=== PATIENT | female | born 1975 | race Caucasian/White ===

== ENCOUNTER 2016-11-14 08:31 | Emergency (ER) | payer MEDICARE, OTHER ==
[2016-11-14 09:01] VITALS: BP 135/73
--- NOTE | 2016-11-14 09:19 | UC ---
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 Negative: Discharge, Foreign Body Sensation, Trauma to Ear, Swelling @, URI Symptoms - Allergies/Home Medications Allergies/Adverse Reactions: Allergies Allergy/AdvReac Type Severity Reaction Status Date / Time Ibuprofen Allergy Unknown Verified 11/14/16 08:51 Reaction Details Home Medications: Home Medications Acetaminophen TAB* [Tylenol TAB*] 325 mg PO ONCE PRN 11/14/16 [History Confirmed 11/14/16] PMH/Surg Hx/FS Hx/Imm Hx Previously Healthy: Yes - Surgical History Surgical History: Yes Surgery Procedure, Year, and Place: 07/17/09 - Family History Known Family History: Positive: Unknown Negative: Diabetes - Social History Alcohol Use: None Substance Use Type: None Smoking Status (MU): Never Smoked Tobacco Have You Smoked in the Last Year: No - Immunization History Hx Tetanus, Diphtheria Vaccination: Yes Vaccination Up to Date: Yes Review of Systems Constitutional: Negative Skin: Negative Eyes: Negative ENT: Ear Ache Respiratory: Negative Cardiovascular: Negative All Other Systems Reviewed And Are Negative: Yes Physical Exam Triage Information Reviewed: Yes Appearance: Well-Appearing, No Pain Distress, Well-Nourished Vital Signs: Initial Vital Signs Temp 99.3 F 11/14/16 08:43 Pulse 88 11/14/16 08:43 Resp 20 11/14/16 08:43 BP 135/73 11/14/16 08:43 Vital Signs Reviewed: Yes Eyes: Positive: Conjunctiva Clear ENT: Positive: Normal ENT inspection, Pharynx normal, Other: - + cerumen impaction left ear, the left ear was flushed with warm water to removed the cerumen, + erythema of the left ear canal, + left ear tenderness, no discharge .. Negative: Pharyngeal erythema, Nasal congestion, Nasal drainage, TM bulging , TM dull, TM red Ear Complaint Course/Dx - Differential Dx/Diagnosis Provider Diagnoses: otitis externa left ear Discharge - Discharge Plan Condition: Stable Disposition: HOME Prescriptions: Acetaminophen [Mapap] 1,000 mg PO Q8H PRN #20 cap PRN Reason: Pain Neomyc/Polym/HC 1% OTIC SUSP* [Cortisporin Otic Susp 1%*] 4 drop LEFT EAR QID # 1 btl Patient Education Materials: Otitis Externa (ED) Referrals: No Primary Care Phys,NOPCP [Primary Care Provider] - Additional Instructions: follow up with your pcp in one week
== END 2016-11-14 09:21 | disposition home or self-care (01) ==
LOC: UCCORT 08:31
DX: H60.92 Unspecified otitis externa, left ear (principal); Z86.018 Personal history of other benign neoplasm
CPT/HCPCS: 99212; G0463

== ENCOUNTER 2016-11-20 10:20 | Emergency (ER) | payer MEDICARE ==
[2016-11-20 10:39] VITALS: BP 122/80
--- NOTE | 2016-11-20 10:50 | UC ---
Ear Complaint HPI - HPI Summary HPI Summary: Patient was seen last week and treated for an otitis externa of the left ear, pain is still present and hearing has decreased. 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 pain is traveling down below the ear as well. - History of Current Complaint Chief Complaint: UCEar Stated Complaint: LEFT EAR COMPLAINT Time Seen by Provider: 11/20/16 10:39 Hx Obtained From: Patient Hx Last Menstrual Period: CANT RECALL . STATES PERIODS ARE IRREGULAR. STATES NOT SEXUALL ACTIVE ?: No - Allergies/Home Medications Allergies/Adverse Reactions: Allergies Allergy/AdvReac Type Severity Reaction Status Date / Time Ibuprofen Allergy Unknown Verified 11/20/16 10:32 Reaction Details PMH/Surg Hx/FS Hx/Imm Hx Previously Healthy: Yes - Surgical History Surgical History: Yes Surgery Procedure, Year, and Place: 07/17/09 - Family History Known Family History: Positive: Unknown Negative: Diabetes - Social History Alcohol Use: None Substance Use Type: None Smoking Status (MU): Never Smoked Tobacco Have You Smoked in the Last Year: No - Immunization History Hx Tetanus, Diphtheria Vaccination: Yes Vaccination Up to Date: Yes Review of Systems Constitutional: Negative Skin: Negative Eyes: Negative ENT: Ear Ache Respiratory: Negative Cardiovascular: Negative Gastrointestinal: Negative Genitourinary: Negative Motor: Negative Neurovascular: Negative Musculoskeletal: Negative Neurological: Negative Psychological: Negative All Other Systems Reviewed And Are Negative: Yes Physical Exam Triage Information Reviewed: Yes Appearance: Well-Appearing, Well-Nourished, Pain Distress Vital Signs: Initial Vital Signs Temp 98.9 F 11/20/16 10:33 Pulse 93 11/20/16 10:33 Resp 18 11/20/16 10:33 BP 122/80 11/20/16 10:33 Pulse Ox 100 11/20/16 10:33 Vital Signs Reviewed: Yes Eye Exam: Normal Eyes: Positive: Conjunctiva Clear ENT: Positive: TM dull, TM red, Other: - large ammount of white exudate in the left ear Dental Exam: Normal Neck exam: Normal Neck: Positive: Supple, Nontender, Enlarged Nodes @ - behind the left ear Respiratory Exam: Normal Respiratory: Positive: Chest non-tender, Lungs clear, Normal breath sounds Cardiovascular Exam: Normal Cardiovascular: Positive: RRR, No Murmur, Pulses Normal Abdominal Exam: Normal Abdomen Description: Positive: Nontender, No Organomegaly, Soft Bowel Sounds: Positive: Present Musculoskeletal Exam: Normal Neurological Exam: Normal Psychological Exam: Normal Skin Exam: Normal Ear Complaint Course/Dx - Course Course Of Treatment: hx obtained, exam performed, meds reviewed, treated for otitis media in left ear, continue with the current drops, recommend follow up with her ENT dr franklin - Differential Dx/Diagnosis Differential Diagnosis/HQI/PQRI: Otitis Externa, Otitis Media, Perforated TM Provider Diagnoses: left otitis media, left otitis externa Discharge - Discharge Plan Condition: Stable Disposition: HOME Prescriptions: Amoxicillin/Clavulanate TAB* [Augmentin TAB 875*] 875 mg PO BID #20 tab Patient Education Materials: Otitis Media (ED), Warm Compress or Soak (ED) Additional Instructions: 1. continue with the drops, and start the antibiotic 2. Follow up with Usama Billy
== END 2016-11-20 11:06 | disposition home or self-care (01) ==
LOC: UCCORT 10:20
DX: H66.92 Otitis media, unspecified, left ear (principal); H60.92 Unspecified otitis externa, left ear
CPT/HCPCS: 99212; G0463